=== PATIENT | female | born 1960 | race Caucasian/White ===

== ENCOUNTER 2016-11-07 15:11 | Inpatient (IN) | payer MEDICARE, MEDICAID ==
[~2016-11-07] VITALS: Ht 172.7 cm; Wt 108.4 kg
[2016-12-20] VITALS (10 sets, daily range): BP systolic 92–126; BP diastolic 48–83; PULSE 63–83; TEMP 97.9–99
[2016-12-20] MEDS ORDERED: SINGULAIR 110 MG/TAB PO (10:04)
[2016-12-20] MEDS ORDERED: FLONASE SENSIM9.9 ML NS (10:05)
[2016-12-20] MEDS ORDERED: PRILOTC PO (10:16)
[2016-12-20] MEDS ORDERED: ULTRAM 50MG TAB50 MG PO (10:17)
[2016-12-20] MEDS ORDERED: BENTYL 10MG10 MG/CAP PO (10:17)
[2016-12-20] MEDS ORDERED: EFFEXOR XR75 MG/CAP PO (10:18)
[2016-12-20] MEDS ORDERED: ZANAFLEX 4MG TAB4 MG PO (10:24)
[2016-12-20] MEDS ORDERED: LYRICA 150MG C150 MG PO (10:24)
[2016-12-20] MEDS ORDERED: SYNTHROID0.088 MG/T PO (10:24)
[2016-12-20] MEDS ORDERED: LIPITOR20 MG PO (10:25)
[2016-12-20] MEDS ORDERED: VOLTAREN 75 DR75 MG PO (10:25)
[2016-12-20] MEDS ORDERED: ZYRTEC 10MG10 MG PO (10:26)
[2016-12-20] MEDS ORDERED: FOLIC ACID 40400 MCG PO (10:27)
[2016-12-20] MEDS ORDERED: MULTI VITAMINS1 TAB PO (10:27)
[2016-12-20] MEDS ORDERED: FERROUS SU325 MG/TAB PO (10:27)
[2016-12-20] MEDS ORDERED: VITAMIN C500 MG PO (10:28)
[2016-12-21 01:44] VITALS: BP 112/63; PULSE 73; TEMP 97.5
[2016-12-21 06:23] VITALS: BP 100/56; PULSE 67; TEMP 98.2
[2016-12-21 07:08] LABS: HEMATOCRIT 33.4 % (37.0-47.0); HEMOGLOBIN 10.7 g/dl (12.5-16.0)
[2016-12-21 07:35] VITALS: BP 96/75; PULSE 65; TEMP 98.4
[2016-12-21 12:09] VITALS: BP 93/50; PULSE 64; TEMP 98.4
[2016-12-21 15:46] VITALS: BP 151/58; PULSE 79; TEMP 98.1
[2016-12-21 21:18] VITALS: BP 130/65; PULSE 88; TEMP 99.3
[2016-12-22 00:05] VITALS: BP 136/73; PULSE 86; TEMP 98.5
[2016-12-22 05:40] VITALS: BP 140/76; PULSE 92; TEMP 98.2
[2016-12-22 06:58] LABS: HEMATOCRIT 30.1 % (37.0-47.0); HEMOGLOBIN 9.7 g/dl (12.5-16.0)
[2016-12-22 07:22] VITALS: BP 125/59; PULSE 95; TEMP 98.3
[2016-12-22 11:48] VITALS: BP 108/67; PULSE 86; TEMP 98
[2016-12-22] MEDS ORDERED: NORCO 325 MG-7.1 TAB PO ×2 (14:31→14:32)
[2016-12-22] MEDS ORDERED: ROXICODONE 55 MG/TAB PO (14:33)
== END 2016-12-22 15:40 | disposition home or self-care (01) | DRG 470 ==
LOC: JCC 12-20 09:16
PROVIDERS: Orthopaedic Surgery
PROC: 0SRD0J9 Replacement of Left Knee Joint with Synthetic Substitute, Cemented, Open Approach (ICD-10-PCS; principal; 2016-12-20 13:15)
DX: M17.32 Unilateral post-traumatic osteoarthritis, left knee (principal)
CPT/HCPCS: A9284; C1713; C1776; J0690; J1100; J1200; J1885; J2250; J2274; J2405; J2704; J3010; J7042; J7120